=== PATIENT | male | born 1950 | race Hispanic/Latino ===

== ENCOUNTER → 2019-04-15 | Outpatient (CLI) | payer OTHER | END | disposition home or self-care (01) | LOC: SHCH 12:47 | PROVIDERS: ATTEND Internal Medicine Cardiovascular Disease | DX: I70.293 Other atherosclerosis of native arteries of extremities, bilateral legs (principal) | CPT/HCPCS: 93925 ==

== ENCOUNTER 2019-07-20 09:46 | Day surgery (SDC) | payer OTHER ==
[2019-07-15 09:55] VITALS: BP 169/95
[2019-07-15 09:56] LABS: BASOPHILS % (AUTO) 0.7 % (0.0-5.0); EOSINOPHILS % (AUTO) 1.9 % (0.0-8.0); HEMATOCRIT 38.5 % (42-54); LYMPHOCYTES % (AUTO) 31.8 % (21.0-51.0); MEAN CORPUSCULAR HEMOGLOBIN 29.6 pg (27.0-33.0); MEAN CORPUSCULAR HGB CONC 33.9 g/dL (32.0-36.0); MEAN CORPUSCULAR VOLUME 87.2 fL (79-99); MONOCYTES % (AUTO) 9.5 % (3.0-13.0); NEUTROPHILS % (AUTO) 56.1 % (40.0-77.0); PLATELET COUNT (AUTO) 203 K/uL (130-400); RED BLOOD CELL COUNT(AUTO) 4.42 MIL/uL (4.50-6.20); RED CELL DISTRIBUTION WIDTH 14.2 % (11.0-15.5); WHITE BLOOD COUNT (AUTO) 7.4 K/uL (4.8-10.8)
[2019-07-15 10:12] LABS: INR 1.02 (0.85-1.15); PARTIAL THROMBOPLASTIN TIME 27.5 SEC (26.3-35.5); PROTHROMBIN TIME 10.7 SEC (9.6-11.6)
[2019-07-20] VITALS (17 sets, daily range): BP systolic 119–201; BP diastolic 53–91
[~2019-07-20] VITALS: Ht 174 cm; Wt 89.6 kg
[~2019-07-20 09:46] MED LIST: AMLO5TAB9 PO; APIX5TAB PO; CALC600T12 PO; CLON1PAT13 TD; FISH1CAP50 PO; HYDR-3894 PO; LEVO150T11 PO; LIDOCAINE HCL 2% VISCOUS 15 ML UDCUP ONE; METF-526 PO; METO100T14 PO; POTA10TA11 PO; RANI150T7 PO; ROSU20TA31 PO; SITA100T12 PO; SODIUM CHLORIDE 0.9% 1000ML 1,000 ML IV SCH; VALS1TAB81 PO
[2019-07-20] MEDS ORDERED: MIDAZOLAM HCL 1 MG/ML 2ML VIAL ONE (12:26)
[2019-07-20] MEDS ORDERED: FENTANYL CITRATE PF 50 MCG/1 ML 2ML VIAL ONE (12:26)
[2019-07-20] MEDS ORDERED: FLUMAZENIL 0.1MG/1ML 5ML VIAL IV ONE (12:27)
--- NOTE | 2019-07-20 15:14 | NUR ---
LATE ENTRY 1240, SHITAL CASTRO, DOCTOR MELLY AND I ARE IN THE ROOM TO PERFORM RICHIE, TIME OUT PERFORMED, INTRAVITALS IN MEDITECH , SEE ATTACHED, START PROCEDURE TIME WAS 1245 AND END WAS 1259, POST RECOVERUY VITALS DONE, PT TOLERATED WELL NO CONCERNS.
== END 2019-07-20 14:51 | disposition home or self-care (01) ==
LOC: DAH 09:46
PROVIDERS: ATTEND Internal Medicine Cardiovascular Disease
DX: I48.91 Unspecified atrial fibrillation (principal); I34.0 Nonrheumatic mitral (valve) insufficiency; I36.1 Nonrheumatic tricuspid (valve) insufficiency; E78.00 Pure hypercholesterolemia, unspecified; I10 Essential (primary) hypertension; Z98.890 Other specified postprocedural states; Z79.84 Long term (current) use of oral hypoglycemic drugs; Z79.899 Other long term (current) drug therapy; Z83.3 Family history of diabetes mellitus
CPT/HCPCS: 36415; 80048; 82948 ×2; 85025; 85610; 85730; 93005; 93312; 93325; A4215; A4216; A4221; A4222; A4223 ×2; A4606; J2250; J3010; J7030; 93313; 99152; J3490

== ENCOUNTER 2020-02-01 23:39 | Emergency (ER) | payer OTHER ==
[~2020-02-01 23:39] MED LIST changes: -HYDR-3894 PO; +HYDR-4419 PO; -LIDOCAINE HCL 2% VISCOUS 15 ML UDCUP ONE; -SODIUM CHLORIDE 0.9% 1000ML 1,000 ML IV SCH
[2020-02-02 00:13] LABS: APPEARANCE,URINE Cloudy (CLEAR); BILIRUBIN,URINE Negative (NEGATIVE); COLOR,URINE Dark Yellow (YELLOW); GLUCOSE, URINE (UA) Negative (NEGATIVE); KETONES,URINE Trace mg/dL (NEGATIVE); LEUKOCYTE ESTERASE ,URINE Moderate (NEGATIVE); NITRATE,URINE Positive (NEGATIVE); OCCULT BLOOD,URINE Moderate (NEGATIVE); PROTEIN,URINE 300 mg/dL (NEGATIVE)
[2020-02-02] MEDS ORDERED: ACETAMINOPHEN 325 MG TAB ONE (00:19)
[2020-02-02 00:21] LABS: BACTERIA,URINE Moderate /HPF (None Seen)
[2020-02-02 00:22] LABS: CALCIUM OXALATE CRYSTALS,UR Few /LPF (None Seen); MUCUS,URINE Few LPF (None Seen); SQUAMOUS EPITHELIAL CELL,UR Few /HPF (0-2)
[2020-02-02 00:38] LABS: INR 0.99 (0.85-1.15); PROTHROMBIN TIME 10.7 SEC (9.6-11.6)
[2020-02-02 00:39] LABS: BASOPHILS % (AUTO) 0.2 % (0.0-5.0); EOSINOPHILS % (AUTO) 0.4 % (0.0-8.0); HEMATOCRIT 37.3 % (42-54); LYMPHOCYTES % (AUTO) 11.5 % (21.0-51.0); MEAN CORPUSCULAR HEMOGLOBIN 28.5 pg (27.0-33.0); MEAN CORPUSCULAR HGB CONC 33.2 g/dL (32.0-36.0); MEAN CORPUSCULAR VOLUME 85.7 fL (79-99); MONOCYTES % (AUTO) 5.2 % (3.0-13.0); NEUTROPHILS % (AUTO) 82.3 % (40.0-77.0); PLATELET COUNT (AUTO) 182 K/uL (130-400); RED BLOOD CELL COUNT(AUTO) 4.35 MIL/uL (4.50-6.20); RED CELL DISTRIBUTION WIDTH 13.7 % (11.0-15.5)
[2020-02-02 00:40] LABS: CARBON DIOXIDE 29 mmol/L (21-32); CHLORIDE 100 mmol/L (101-111); CREATININE 1.2 mg/dL (0.5-1.5); GLOMERULAR FILTR. RATE CALC 64 mL/min (>60); GLUCOSE,RANDOM 128 mg/dL (70-105); POTASSIUM 3.2 mmol/L (3.5-5.1); SODIUM SERUM 139 mmol/L (136-145); UREA NITROGEN, BLOOD 16 mg/dL (7-18)
[2020-02-02 00:41] LABS: CRP QUANTITATIVE 79.2 mg/L (0.00-9.0)
[2020-02-02 00:51] LABS: ALANINE AMINOTRANSFERASE 28 U/L (12-78); ALBUMIN 3.2 g/dL (3.5-5.0); ASPARTATE AMINOTRANSFERASE 37 U/L (10-37); BILIRUBIN,TOTAL 0.7 mg/dL (0.2-1.0); CREATINE KINASE, TOTAL 77 U/L (21-232); MYOGLOBIN 304 ng/mL (10-92); TROPONIN I < 0.04 ng/mL (0.00-0.06)
[2020-02-02] MEDS ORDERED: CEFTRIAXONE SODIUM 2 GM VIAL ONE (01:33)
== END 2020-02-02 03:09 | disposition home or self-care (01) ==
LOC: EDH 23:39
DX: N39.0 Urinary tract infection, site not specified (principal); R50.9 Fever, unspecified; Z20.828 Contact with and (suspected) exposure to other viral communicable diseases; E11.9 Type 2 diabetes mellitus without complications; I10 Essential (primary) hypertension; E78.00 Pure hypercholesterolemia, unspecified; E03.9 Hypothyroidism, unspecified
CPT/HCPCS: 36415; 71045; 80053; 81001; 82550; 82728; 83605; 83874; 84145; 84484; 85025; 85378; 85610; 85730; 86140; 87040 ×2; 87077; 87088; 87186; 87633; 87635; 87804 ×2; 93005; 96374; 99285; J0696

== ENCOUNTER → 2021-04-19 | Outpatient (CLI) | payer OTHER ==
[~2021-04-19] MED LIST changes: +AMLO-257 PO; -AMLO5TAB9 PO; +CALC-1125 PO; -CALC600T12 PO
== END | disposition home or self-care (01) ==
LOC: SHCH 13:15
PROVIDERS: ATTEND Internal Medicine Cardiovascular Disease
DX: I87.2 Venous insufficiency (chronic) (peripheral) (principal); R60.9 Edema, unspecified
CPT/HCPCS: 93970

== ENCOUNTER 2023-03-24 10:20 | Emergency (ER) | payer OTHER ==
[~2023-03-24] VITALS: Ht 172.7 cm; Wt 90.7 kg
[~2023-03-24 10:20] MED LIST changes: +POTA-183 PO; -POTA10TA11 PO; -ROSU20TA31 PO; +ROSU20TA73 PO
[2023-03-24 12:44] LABS: BASOPHILS % (AUTO) 0.5 % (0.0-5.0); EOSINOPHILS % (AUTO) 1.9 % (0.0-8.0); HEMATOCRIT 37.9 % (42-54); LYMPHOCYTES % (AUTO) 29.4 % (21.0-51.0); MEAN CORPUSCULAR HEMOGLOBIN 26.7 pg (27.0-33.0); MEAN CORPUSCULAR HGB CONC 31.1 g/dL (32.0-36.0); MEAN CORPUSCULAR VOLUME 85.7 fL (79-99); MONOCYTES % (AUTO) 8.4 % (3.0-13.0); NEUTROPHILS % (AUTO) 59.4 % (40.0-77.0); PLATELET COUNT (AUTO) 208 K/uL (130-400); RED BLOOD CELL COUNT(AUTO) 4.42 MIL/uL (4.50-6.20); RED CELL DISTRIBUTION WIDTH 14.7 % (11.0-15.5)
[2023-03-24 12:58] LABS: INR 1.04 (0.85-1.15); PROTHROMBIN TIME 11.3 SEC (9.6-11.6)
[2023-03-24 12:59] LABS: PARTIAL THROMBOPLASTIN TIME 29.5 SEC (26.3-35.5)
[2023-03-24 13:01] LABS: CREATININE 0.9 mg/dL (0.5-1.5); POTASSIUM 3.7 mmol/L (3.5-5.1)
[2023-03-24 13:06] LABS: TOTAL PROTEIN, SERUM 8.1 g/dL (6.0-8.3)
[2023-03-24] MEDS ORDERED: ACET-66 PO (13:21)
[2023-03-24] MEDS ORDERED: AMOX1TAB16 PO (13:22)
[2023-03-24 13:49] VITALS: BP 160/78
== END 2023-03-24 13:57 | disposition home or self-care (01) ==
LOC: EDH 10:20
DX: S02.5XXA Fracture of tooth (traumatic), initial encounter for closed fracture (principal); I10 Essential (primary) hypertension; E11.9 Type 2 diabetes mellitus without complications; E78.00 Pure hypercholesterolemia, unspecified; Z79.84 Long term (current) use of oral hypoglycemic drugs; Z79.899 Other long term (current) drug therapy; Z98.890 Other specified postprocedural states; X58.XXXA Exposure to other specified factors, initial encounter; Y93.89 Activity, other specified; Y92.89 Other specified places as the place of occurrence of the external cause; Y99.8 Other external cause status
CPT/HCPCS: 36415; 80053; 85025; 85610; 85730

== ENCOUNTER 2023-11-18 06:17 | Day surgery (SDC) | payer OTHER ==
[2023-11-14 10:09] LABS: BASOPHILS # (AUTO) 0.04 K/uL (0.00-0.20); BASOPHILS % (AUTO) 0.4 % (0.0-5.0); EOSINOPHILS # (AUTO) 0.05 K/uL (0.00-0.70); EOSINOPHILS % (AUTO) 0.5 % (0.0-8.0); HEMATOCRIT 48.2 % (42-54); IMMATURE GRANULOCYTE ABSOLUTE 0.04 K/uL (0-1); LYMPHOCYTES # (AUTO) 2.5 K/uL (1.0-4.8); LYMPHOCYTES % (AUTO) 25.8 % (21.0-51.0); MEAN CORPUSCULAR HEMOGLOBIN 28.1 pg (27.0-33.0); MEAN CORPUSCULAR VOLUME 87.8 fL (79-99); MONOCYTES # (AUTO) 0.8 K/uL (0.1-1.0); MONOCYTES % (AUTO) 8.6 % (3.0-13.0); NEUTROPHILS # (AUTO) 6.2 K/uL (1.8-7.7); NEUTROPHILS % (AUTO) 64.3 % (40.0-77.0); PLATELET COUNT (AUTO) 204 K/uL (130-400); RED BLOOD CELL COUNT(AUTO) 5.49 MIL/uL (4.50-6.20); RED CELL DISTRIBUTION WIDTH 14.8 % (11.0-15.5); WHITE BLOOD COUNT (AUTO) 9.6 K/uL (4.8-10.8)
[2023-11-14 10:20] LABS: INR 0.96 (0.85-1.15); PROTHROMBIN TIME 11.2 SEC (9.6-11.6)
[2023-11-14 10:21] LABS: PARTIAL THROMBOPLASTIN TIME 29.6 SEC (26.3-35.5)
[2023-11-14 10:38] LABS: ALBUMIN 3.6 g/dL (3.5-5.0); BILIRUBIN,TOTAL 1.3 mg/dL (0.2-1.0); CREATININE 1.7 mg/dL (0.5-1.5); POTASSIUM 3.5 mmol/L (3.5-5.1)
[2023-11-14 11:01] VITALS: BP 116/64; PULSE 79; RESP 18
[~2023-11-18] VITALS: Ht 172.7 cm; Wt 85.3 kg
[2023-11-18] VITALS (17 sets, daily range): BP systolic 133–153; BP diastolic 64–75; PULSE 62–78; RESP 14–18
[~2023-11-18 06:17] MED LIST changes: -AMLO-257 PO; +AMLO-258 PO; +CLON1PAT12 TD; -CLON1PAT13 TD; -FISH1CAP50 PO; -HYDR-4419 PO; +HYDR5TAB14 PO; +LEVO125C4 PO; -LEVO150T11 PO; +LOSA100T59 PO; -POTA-183 PO; -RANI150T7 PO; -ROSU20TA73 PO; +ROSU40TA21 PO; -SITA100T12 PO; -VALS1TAB81 PO
[2023-11-18] MEDS ORDERED: 0.9%NACL 1000ML 1,000 ML IV ONE (07:08)
[2023-11-18] MEDS ORDERED: MEROPENEM 1 GM VIAL ONE (07:09)
[2023-11-18] MEDS ORDERED: FAMOTIDINE 20MG VIAL IV ONE (07:17)
[2023-11-18] MEDS ORDERED: PHENYLEPHRINE HCL 10 MG/ML 1ML VIAL IV ONE (07:20)
[2023-11-18] MEDS ORDERED: LIDOCAINE 1%-EPI 1:100,000 20 ML VIAL ONE (07:39)
[2023-11-18] MEDS ORDERED: PROPOFOL 10 MG/ML 20ML VIAL IV ONE (08:03)
[2023-11-18] MEDS ORDERED: LIDOCAINE PF 100MG/5ML (2%) SYRINGE 5ML ONE (08:03)
[2023-11-18] MEDS ORDERED: FENTANYL CITRATE PF 50 MCG/1 ML 2ML VIAL ONE (08:03)
[2023-11-18] MEDS ORDERED: ROCURONIUM BROMIDE 10MG/1ML 5ML VL ONE (08:03)
[2023-11-18] MEDS ORDERED: ONDANSETRON 4MG INJ ONE (08:20)
[2023-11-18] MEDS ORDERED: LIDOCAINE 1%-EPI 1:100,000 20 ML VIAL IJ ONE (08:38)
[2023-11-18] MEDS ORDERED: BUPIVACAINE/PF 0.25% 30ML VIAL IJ ONE (08:38)
[2023-11-18] MEDS ORDERED: GLYCOPYRROLATE 0.2 MG/ML 5 ML VIAL ONE (08:43)
[2023-11-18] MEDS ORDERED: SUGAMMADEX SODIUM 200 MG/2 ML VIAL IV ONE (08:52)
== END 2023-11-18 10:45 | disposition home or self-care (01) ==
LOC: DAH 06:17
PROVIDERS: ATTEND Surgery
DX: K60.3 Anal fistula (principal); L29.0 Pruritus ani; I10 Essential (primary) hypertension; I44.7 Left bundle-branch block, unspecified; E11.51 Type 2 diabetes mellitus with diabetic peripheral angiopathy without gangrene; E78.00 Pure hypercholesterolemia, unspecified; Z79.01 Long term (current) use of anticoagulants; Z79.899 Other long term (current) drug therapy; Z79.890 Hormone replacement therapy; Z79.84 Long term (current) use of oral hypoglycemic drugs
CPT/HCPCS: 80053; 85025; 85610; 85730; 36415; 93005; 46270; 82948 ×2; 88304; A4663; J7120; J3490 ×5; J3010; J7030; J0665; J2001; J2704; J2405; J2371; J2185; A4649; A4930; A4215; A4223; A4222; A4221; A4600

== ENCOUNTER → 2024-09-21 | Outpatient (CLI) | payer OTHER ==
[~2024-09-21] MED LIST changes: -ROSU40TA21 PO; +ROSU40TA88 PO
--- NOTE | 2024-09-26 14:11 | HMCSR ---
APPROVED REPORT EXAM: Two-dimensional and M-mode echocardiogram with Doppler and color Doppler. INDICATION ICD: Dyspnea R06.00 Atrial Fibrillation RISK FACTORS Hypertension Hyperlipidemia Diabetes 2D Dimensions RVDd3.8 cmLVEF(%)45.0 (>50%)LVED Vol(simp.)115.0 mL IVSd0.8 (0.7-1.1cm)Ao Root(2D)3.1 (2.0-3.7cm)LVES Vol(simp.)50.0 mL LVDd4.9 (3.8-5.6cm)LVOT diam2.2 (1.8-2.4cm)LVEF(%, simp.)57 % PWd1.0 (0.7-1.1cm)IVC diam2.0 cmLA ESV INDEX (BP)45.49 mL/m2 LVDs3.4 (2.5-4.0cm) Aortic Valve AoV Vmax1.2 m/Janell Peak GR5.3 mmHgLVOT Vmax0.8 m/s AoV VTI0.3 mAo Mean GR2.9 mmHgLVOT VTI0.17 m VERONA (VMAX)2.5 cm2Al P1/2T543 msAVA (VTI) 2.5 cm2 Mitral Valve MV E Kwld480.4 cm/sDECEL Szih778 ms MR Max PG59 mmHgP 1/2 T41 ms MVA (PHT)5.4 cm2 Pulmonary Valve PV Vmax0.8 m/sPV VTI0.20 mPV Mean GR2 mmHg PV Peak GR2.6 mmHg Tricuspid Valve TR Vmax3.4 m/sRAP (EST) 8 zsUbPEIX15.3 mmHg TR Peak GR46.3 mmHg Left Ventricle Left ventricular cavity size is normal. There is normal left ventricular wall thickness. LVEF is 45-5 0%. No left ventricle thrombus noted on this study. Indeterminate diastolic dysfunction. Right Ventricle The right ventricle is normal size. Right ventricular systolic function is mildly reduced. Atria The left atrium is moderately dilated. The right atrium is moderately dilated. Aortic Valve Aortic valve is trileaflet. Aortic valve leaflets are sclerotic but open well. Trace aortic regurgit ation. There is no aortic valvular stenosis. Mitral Valve The mitral valve is mildly thickened but opens well. Mitral annular calcification is mild. Mitral reg urgitation is trace to mild. There is no mitral valve stenosis. Tricuspid Valve The tricuspid valve leaflets appear normal. There is moderate tricuspid regurgitation. Right ventricu lar systolic pressure is estimated at 50-60 mmHg. Pulmonic Valve Pulmonic valve is not well visualized. There is trace pulmonic valvular regurgitation. Great Vessels The aortic root is normal in size. IVC is dilated and collapses >50% with inspiration. Pericardium No pericardial effusion. Conclusion Left ventricular cavity size is normal. The right ventricle is normal size. The left atrium is moderately dilated. The right atrium is moderately dilated. Aortic valve is trileaflet. Aortic valve leaflets are sclerotic but open well. Trace aortic regurgitation. The mitral valve is mildly thickened but opens well. Mitral annular calcification is mild. Mitral regurgitation is trace to mild. There is moderate tricuspid regurgitation. Right ventricular systolic pressure is estimated at 50-60 mmHg. There is trace pulmonic valvular regurgitation. The aortic root is normal in size. IVC is dilated and collapses >50% with inspiration. No pericardial effusion.
== END | disposition home or self-care (01) ==
LOC: SHCH 09:18
PROVIDERS: ATTEND Internal Medicine Cardiovascular Disease
DX: I08.3 Combined rheumatic disorders of mitral, aortic and tricuspid valves (principal); I11.9 Hypertensive heart disease without heart failure; I48.91 Unspecified atrial fibrillation; E11.9 Type 2 diabetes mellitus without complications; R06.00 Dyspnea, unspecified; E78.5 Hyperlipidemia, unspecified
CPT/HCPCS: 93306

== ENCOUNTER → 2024-11-03 | Outpatient (CLI) | payer OTHER | END | disposition home or self-care (01) | LOC: RESP 13:49 | PROVIDERS: ATTEND Internal Medicine Cardiovascular Disease | DX: J44.9 Chronic obstructive pulmonary disease, unspecified (principal); R06.00 Dyspnea, unspecified | CPT/HCPCS: 94060; 94729 ==

== ENCOUNTER → 2025-01-25 | Outpatient (CLI) | payer OTHER ==
[~2025-01-25] MED LIST changes: -LEVO125C4 PO; +LEVO125C5 PO
--- NOTE | 2025-01-25 15:44 | HMCIMG ---
CT HEART SAVER PROMOTIONAL HISTORY: Calcium scoring COMPARISON: None TECHNIQUE: Computed tomography of the heart was performed with ECG gating and suspended respiration. Postprocessing was performed on a computer workstation to obtain diastolic phase images, determine calcium score and provide a quantitative assessment of extent of disease. This CT included only the heart. HeartSaver score is 3671.2. Please see cardiac calcium score report. The available CT chest images show no acute finding. CT was performed with one or more following dose reduction techniques: automated exposure control, adjustment of the mA and kv according to patient's size, or use of a iterative reconstruction technique.
== END | disposition home or self-care (01) ==
LOC: RAH 14:01
PROVIDERS: ATTEND Internal Medicine Cardiovascular Disease
DX: Z13.6 Encounter for screening for cardiovascular disorders (principal)
CPT/HCPCS: 75571

== ENCOUNTER 2025-04-25 08:48 | Day surgery (SDC) | payer OTHER ==
[2025-04-21 10:28] LABS: IMMATURE GRANULOCYTE ABSOLUTE 0.03 K/uL (0-1); NUCLEATED RED BLOOD CELLS 0.0 % (0.0-0.19); PLATELET COUNT (AUTO) 243 K/uL (130-400); RED BLOOD CELL COUNT(AUTO) 4.81 MIL/uL (4.50-6.20); RED CELL DISTRIBUTION WIDTH 14.6 % (11.0-15.5); WHITE BLOOD COUNT (AUTO) 9.0 K/uL (4.8-10.8)
[2025-04-21 10:31] VITALS: BP 144/72; PULSE 64; RESP 17; TEMP 97.2
[2025-04-21 10:36] LABS: CREATININE 1.2 mg/dL (0.5-1.3); GLOMERULAR FILTR. RATE CALC 63.0 mL/min (>90); GLUCOSE,RANDOM 166.0 mg/dL (70-105); SODIUM SERUM 141.0 mmol/L (136-145); UREA NITROGEN, BLOOD 14.0 mg/dL (7-18)
[2025-04-21 10:39] LABS: INR 1.08 (0.85-1.15)
--- NOTE | 2025-04-21 10:42 | EKG ---
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1950 Requested By: Jim PICKARD Order Number: [id number] Reading MD: Sarah Quick Measurements Intervals Valders Rate: 67 P: 0 CA: 0 QRS: -57 QRSD: 104 T: 48 QT: 478 QTc: 506 Interpretive Statements Atrial fibrillation LAD, consider left anterior fascicular block Prolonged QT interval Compared to ECG 11/14/2023 10:58:36 Prolonged QT interval now present Supraventricular rhythm no longer present Left-axis deviation no longer present Left bundle-branch block no longer present Electronically Signed On 04-22-2025 08:25:54 CDT by Sarah Quick Please click the below link to view image of tracing.
--- NOTE | 2025-04-21 12:08 | HMCIMG ---
EXAM: CR Chest, 1 View. CLINICAL HISTORY: PREOP COMPARISON: None provided. FINDINGS: LUNGS: The lungs show no infiltrate or other acute finding. PLEURAL SPACES: No evidence of pleural effusion or pneumothorax. MEDIASTINUM: Cardiac size and mediastinal contours within normal limits. BONES: No aggressive appearing osseous lesion seen. IMPRESSION: No acute cardiopulmonary pathology is evident. /[place]
[2025-04-25] VITALS (11 sets, daily range): BP systolic 129–168; BP diastolic 67–79; PULSE 68–95; RESP 12–23; TEMP 96.7–97.9
[~2025-04-25] VITALS: Ht 172.7 cm; Wt 92.0 kg
[~2025-04-25 08:48] MED LIST changes: +AMLO-257 PO; -AMLO-258 PO; +ASPI-1443 PO; -CALC-1125 PO; +CLON0.1T PO; +LEVO112T7 PO; -LEVO125C5 PO; +NITR0.4T50 SL
[2025-04-25] MEDS: 0.9%NACL 1000ML 1,000 ML IV SCH (09:43)
[2025-04-25] MEDS ORDERED: LIDOCAINE HCL 400MG/20ML VIAL ONE (12:34)
[2025-04-25] MEDS ORDERED: NITROGLYCERIN 50MG VIAL ONE (12:34)
[2025-04-25] MEDS ORDERED: HEParin-NS 1,000 UNIT/500 ML 1,000 ML IV ONE (12:34)
[2025-04-25] MEDS ORDERED: IOHEXOL 350 MG/ML 100ML INFUS..BTL IV ONE (12:34)
[2025-04-25] MEDS ORDERED: MIDAZOLAM HCL 1 MG/ML 2ML VIAL ONE ×2 (12:49→13:04)
[2025-04-25] MEDS ORDERED: SODIUM BICARB 50MEQ 50ML VIAL 50 ML ONE (12:53)
[2025-04-25] MEDS ORDERED: IOHEXOL-350 50ML VIAL IV ONE (13:11)
[2025-04-25] MEDS ORDERED: DEXTROSE 50%-WATER 50 ML DISP.SYRIN IV PRN (14:00)
[2025-04-25] MEDS ORDERED: 0.9%NACL 1000ML 1,000 ML IV SCH (14:00)
[2025-04-25] MEDS ORDERED: GLUCAGON 1MG KIT 1 MG ML IM PRN (14:00)
--- NOTE | 2025-04-25 14:21 | PR ---
PROCEDURES: * Left heart catheterization. * Left ventriculogram. * Selective diagnostic right and left coronary arteriogram. * Conscious sedation for 30 minutes. INDICATIONS: * Recurrent angina. * Abnormal coronary CT angiogram. COMPLICATIONS: None. TOTAL CONTRAST: Approximately 65 mL. APPROACH: Right radial approach. DESCRIPTION OF PROCEDURE: The patient was taken to the cardiac labor expediter after the appropriate operative consents were signed. He was prepped and draped in the usual fashion. After conscious sedation was administered, the right radial artery was accessed after infiltration with 2% Xylocaine without epinephrine. A 6-Portuguese Slender radial sheath was advanced in retrograde fashion by the modified Seldinger technique. At this point, a TIG-4 catheter was advanced over an indwelling J-wire. This was selected against an ostium of the left main. Imaging was obtained in multiplane. The left main was a moderately sized vessel that was calcified, but did not appear to be stenotic. It trifurcated into an LAD, a branching small intermediate, and an ongoing circ. The LAD was a small vessel that had diffuse calcification and a tubular 50% stenosis in the ostial to proximal segment before the small first diagonal. An 80% lesion was noted and best seen in the CHINESE projection in the mid LAD just distal to the first diagonal. Another lesion was approximately the same degree of stenosis at 80% in the mid to distal segment. The vessel was small caliber and calcified. The intermediate was a small vessel that was bifurcating, but had no significant stenotic lesions. The circumflex coronary artery was a larger vessel that had given rise to a small obtuse marginal and an ongoing circ with a large branching obtuse marginal. There was an area of 60-80% tubular stenosis distal to the first marginal and before that distal marginal branch. At this point, the catheter was redirected and engaged in the ostium of the right coronary artery. This was imaged in multiplane. This was a moderately calcified vessel that was moderately sized and had an 80% lesion in its mid portion just proximal to the takeoff of the acute marginal. There was another 40-50% stenotic lesion in the distal portion before bifurcating into PDA and a PLVB. At this point, a pigtail catheter was advanced and placed in the left ventricular cavity. The left ventriculogram was obtained after measuring the left ventricular end-diastolic pressure. Ejection fraction was normal at 65% with normal wall motion. There was no MR and no on pullback. At this point, the procedure was completed. The catheter was withdrawn over an indwelling wire. A radial band was applied and the radial sheath was removed. The patient was stable and tolerated the procedure well. FINAL IMPRESSION: * Severe 3-vessel coronary artery disease. * Preserved left ventricular systolic function. * No aortic stenosis. PLAN: Reviewing the images with other colleagues, we all agreed that the patient is not ideally suited for percutaneous intervention given the diffuse nature of his disease and the degree of calcification as well as the caliber of the vessels. Given that, we will obtain a surgical opinion. TID: [id number] RECEIPT: [id number]
--- NOTE | 2025-04-25 15:35 | NUR ---
VASC BAND: VASC BAND REMOVED WITH NO ACTIVE BLEEDING PRESENT. CLEANSED AREA WITH CHLORAPREP, FOLLOWED BY APPLYING STERILE 2X2 THEN TEGADERM 2X2. NO REDNESS/SWELLING NOTED TO SURROUNDING AREA RT WRIST.
== END 2025-04-25 17:20 | disposition home or self-care (01) ==
LOC: DAH 08:48
PROVIDERS: ATTEND Internal Medicine Cardiovascular Disease
DX: R93.1 Abnormal findings on diagnostic imaging of heart and coronary circulation (principal); I25.118 Atherosclerotic heart disease of native coronary artery with other forms of angina pectoris; I25.84 Coronary atherosclerosis due to calcified coronary lesion; R06.09 Other forms of dyspnea; I10 Essential (primary) hypertension; E11.51 Type 2 diabetes mellitus with diabetic peripheral angiopathy without gangrene; I48.91 Unspecified atrial fibrillation; I27.20 Pulmonary hypertension, unspecified; E78.5 Hyperlipidemia, unspecified; E03.9 Hypothyroidism, unspecified; Z79.01 Long term (current) use of anticoagulants; Z79.84 Long term (current) use of oral hypoglycemic drugs; Z79.899 Other long term (current) drug therapy
CPT/HCPCS: 80048; 83880; 85025; 85610; 85730; 36415; 71045; 93005; 93458; 99156; 99157; 82948 ×2; J1815; C1769; A4649; C1894; Q9965; J3010; J3490 ×4; J7030; J1644 ×2; J2250 ×2; Q9967 ×2; A4215; A4222; A6260; A4221; A4663; A4216; A6206; A4606; A4223 ×3; 96360; 96361